=== PATIENT | male | born 2000 | race Two or more races ===

== ENCOUNTER 2021-05-22 11:34 | Outpatient (REF) | payer MEDICAID, SELFPAY | END 2021-05-22 11:35 | disposition home or self-care (01) | LOC: HO.LAB 11:34 | PROVIDERS: Visit Provider Internal Medicine | DX: Z20.822 Contact with and (suspected) exposure to COVID-19 (principal) | CPT/HCPCS: C9803; U0003; U0005 ==

== ENCOUNTER 2022-12-21 12:42 | Emergency (ER) | payer OTHER, MEDICAID, SELFPAY ==
[2022-12-21 13:27] VITALS: BP 103/59; PULSE 70; RESP 16; TEMP 36.4; O2SAT 98; BMI 20.5
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
== END 2022-12-21 15:27 | disposition home or self-care (01) ==
PROVIDERS: Emergency Provider Emergency Medicine Emergency Medical Services
DX: S29.012A Strain of muscle and tendon of back wall of thorax, initial encounter (principal); V43.62XA Car passenger injured in collision with other type car in traffic accident, initial encounter; Y93.9 Activity, unspecified; Y92.410 Unspecified street and highway as the place of occurrence of the external cause; Y99.9 Unspecified external cause status
CPT/HCPCS: 99282; 99283

== ENCOUNTER 2023-01-26 16:19 | Emergency (ER) | payer MEDICAID, SELFPAY ==
--- NOTE | ~2023-01-26 | XR_ITS ---
EXAMINATION: XR HAND, LEFT CLINICAL INFORMATION: Pain. Fall. COMPARISON: None available. TECHNIQUE: PA, lateral, and oblique views of the left hand. FINDINGS: The bones and soft tissues are normal. No fracture. Alignment is anatomic. Joint spaces are maintained. No erosions or soft tissue calcifications. XR/XR hand LT min 3V IMPRESSION: Normal left hand.
[2023-01-26 16:50] VITALS: BP 115/69; PULSE 76; RESP 14; TEMP 36.8; O2SAT 98; BMI 19.4
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
== END 2023-01-26 18:31 | disposition home or self-care (01) ==
LOC: HO.ED 18:30
PROVIDERS: Emergency Provider Emergency Medicine
DX: M25.532 Pain in left wrist (principal); S00.212A Abrasion of left eyelid and periocular area, initial encounter; S50.812A Abrasion of left forearm, initial encounter; S50.811A Abrasion of right forearm, initial encounter; W01.0XXA Fall on same level from slipping, tripping and stumbling without subsequent striking against object, initial encounter; Y93.02 Activity, running; Y92.414 Local residential or business street as the place of occurrence of the external cause; Y99.9 Unspecified external cause status
CPT/HCPCS: 73130; 99282; 99283